=== PATIENT | male | born 2000 | race African-American/Black ===

== ENCOUNTER 2021-08-07 23:21 | Emergency (ER) | payer MEDICAID ==
[~2021-08-07] VITALS: Ht 175.3 cm; Wt 114.0 kg
[2021-08-08] MEDS ORDERED: KETOROLAC 30MG/ML VIAL IV STA (08:24)
[2021-08-08 08:58] VITALS: BP 140/78
[2021-08-08 09:07] LABS: BASOPHILS % 1.2 % (0.0-2.0); EOSINOPHILS % 0.6 % (0.0-5.0); HEMATOCRIT. 43.1 % (42.0-52.0); HEMOGLOBIN. 13.8 g/dL (14.0-18.0); LYMPHOCYTES % 30.8 % (20.0-50.0); MEAN CORPUSCULAR HEMOGLOBIN 26.5 pg (28.0-32.0); MEAN CORPUSCULAR VOLUME 82.8 fL (80.0-94.0); MEAN PLATELET VOLUME 11.5 fl (7.4-10.4); MONOCYTES % 9.1 % (2.0-8.0); NEUTROPHILS % 58.3 % (40.0-76.0); PLATELET 103 x1000/uL (130-400)
[2021-08-08 09:11] LABS: CHLORIDE 105 mEq/L (98-107)
[2021-08-08] MEDS ORDERED: TOPUD PO (09:27)
== END 2021-08-08 10:03 | disposition home or self-care (01) ==
LOC: ER 23:21
DX: R07.89 Other chest pain (principal); R00.2 Palpitations; R03.0 Elevated blood-pressure reading, without diagnosis of hypertension; I49.1 Atrial premature depolarization; J45.909 Unspecified asthma, uncomplicated
CPT/HCPCS: 36415; 71045; 80053; 83880; 84484; 85025; 93005; 96374; 99285; J1885